=== PATIENT | female | born 1995 | race Caucasian/White ===

== ENCOUNTER 2016-08-06 10:24 | Emergency (ER) | payer MEDICAID ==
[2016-08-06 11:19] LABS: URINE APPEARANCE CLEAR; URINE BILIRUBIN NEGATIVE (NEGATIVE); URINE BLOOD MODERATE (NEGATIVE); URINE COLOR YELLOW; URINE GLUCOSE (UA) NEGATIVE (NEGATIVE); URINE KETONE NEGATIVE (NEGATIVE); URINE LEUKOCYTE ESTERASE NEGATIVE (NEGATIVE); URINE NITRITE NEGATIVE (NEGATIVE); URINE PROTEIN NEGATIVE (NEGATIVE); URINE UROBILINOGEN 0.2 E.U./dL (0.20 - 1.00)
[2016-08-06 11:19] LABS: BASO % 0.3 % (0-6); EOS % 0.9 % (0-6); GRAN % 60.6 % (47-80); HEMATOCRIT 38.2 % (35.0-47.0); HEMOGLOBIN 12.9 gm/dl (11.6-16.0); LYMPH % 32.1 % (16-45); MEAN CELL VOLUME 88.4 fl (81-97); MEAN CORPUSCULAR HEMOGLOBIN 29.9 pg (27-33); MEAN CORPUSCULAR HGB CONC 33.8 g/dl (32-36); MEAN PLATELET VOLUME 11.9 fl (7.4-10.4); MONO % 6.1 % (0-9); PLATELET COUNT 176 K/uL (130-400); RED BLOOD COUNT 4.32 M/uL (3.80-5.40); RED CELL DISTRIBUTION WIDTH 12.1 % (11.5-14.5); WHITE BLOOD COUNT W/O DIFF 6.4 K/uL (4.2-12.2)
[2016-08-06 11:40] LABS: URINE BACTERIA FEW; URINE WBC 0 - 2 (0-2/hpf)
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
--- NOTE | 2016-08-08 13:15 | ULTRASOUND REPORT ---
EXAM: ULTRASOUND FIRST TRIMESTER WITH TRANSVAGINAL IMAGING HISTORY: VAGINAL BLEEDING FOR ONE DAY. TWO PRIOR MISCARRIAGES. TECHNIQUE: Transabdominal ultrasound examination of the pelvis was performed. Transvaginal scanning was also performed for further evaluation of the uterus and adnexa. Comparison: Ultrasound first trimester with transvaginal imaging dated 07/31/16. FINDINGS: TRANSABDOMINAL PELVIC ULTRASOUND: The uterus is normal in position and smoothly marginated. It measures 7.5 x 2.8 x 5.4 cm while on the prior examination it measured 8.5 x 2.9 x 5.0 cm. No myometrial mass is seen. There is a small cystic structure within the fundal endometrium measuring 7 x 9 mm. It is better visualized transvaginally. The right ovary is visualized and normal in appearance measuring 2.6 x 1.0 x 2.1 cm. The left ovary is visualized and normal in appearance measuring 1.7 x 3.2 x 1.6 cm. No adnexal mass nor free pelvic fluid. TRANSVAGINAL PELVIC ULTRASOUND: No myometrial mass is seen. An intrauterine gestational sac is noted in the fundus. The gestational sac measures 7 x 7 x 7.5 mm with a mean sac diameter of 7.3 mm. A small pole and yolk sac are noted within the gestational sac. cardiac activity is identified with a heart rate of 101 b.p.m. There is a normal appearing decidual reaction. No implantation bleed is seen. The average crown rump length of 2.8 mm corresponds to a gestational age of 5 weeks 6 days. Each ovary is visualized and normal in size. The right ovary measures 1.9 x 1.4 x 1.2 cm and the left ovary measures 1.7 x 1.2 x 1.4 cm. Blood flow is noted in each ovary with color Doppler and Duplex Doppler evaluation. Spectral analysis demonstrates venous and arterial waveforms in each ovary. No adnexal mass nor free pelvic fluid. IMPRESSION: 1. SINGLE LIVE INTRAUTERINE IDENTIFIED WITH AGE ACCORDING TO CROWN RUMP LENGTH OF 5 WEEKS 6 DAYS. ON THE PRIOR EXAMINATION DATED 07/31/16, THE ESTIMATED GESTATIONAL AGE WAS 5 WEEKS 5 DAYS. NO EVIDENCE OF IMPLANTATION BLEED. 2. HEART RATE IS 101 B.P.M. 3. NORMAL OVARIES. JOB NUMBER: [id number] [facility]
== END 2016-08-06 15:34 | disposition home or self-care (01) ==
LOC: ER 10:24
DX: O20.0 Threatened abortion (principal); Z3A.01 Less than 8 weeks gestation of pregnancy
CPT/HCPCS: 76801; 76817; 81001; 84702; 85025; 99284

== ENCOUNTER 2016-08-20 20:34 | Emergency (ER) | payer MEDICAID ==
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
[2016-08-20 21:06] LABS: URINE APPEARANCE CLEAR; URINE BILIRUBIN NEGATIVE (NEGATIVE); URINE BLOOD LARGE (NEGATIVE); URINE COLOR YELLOW; URINE GLUCOSE (UA) NEGATIVE (NEGATIVE); URINE KETONE NEGATIVE (NEGATIVE); URINE LEUKOCYTE ESTERASE NEGATIVE (NEGATIVE); URINE NITRITE NEGATIVE (NEGATIVE); URINE UROBILINOGEN 0.2 E.U./dL (0.20 - 1.00)
[2016-08-20] MEDS: HYOSCYAMINE SULFATE ODT 0.125 MG TAB.SUBL SL ONE (21:14)
[2016-08-20] MEDS: ACETAMINOPHEN 325 MG TAB PO ONE (21:15)
[2016-08-20 21:16] LABS: URINE BACTERIA NONE SEEN; URINE EPITHELIAL CELLS 0 - 2 (FEW); URINE WBC 0 - 2 (0-2/hpf)
[2016-08-20 21:20] LABS: BASO % 0.6 % (0-6); EOS % 1.1 % (0-6); GRAN % 56.6 % (47-80); HEMATOCRIT 39.9 % (35.0-47.0); HEMOGLOBIN 13.4 gm/dl (11.6-16.0); LYMPH % 33.1 % (16-45); MEAN CELL VOLUME 87.9 fl (81-97); MEAN CORPUSCULAR HEMOGLOBIN 29.5 pg (27-33); MEAN CORPUSCULAR HGB CONC 33.6 g/dl (32-36); MONO % 8.6 % (0-9); PLATELET COUNT 213 K/uL (130-400); RED BLOOD COUNT 4.54 M/uL (3.80-5.40); WHITE BLOOD COUNT W/O DIFF 8.5 K/uL (4.2-12.2)
[2016-08-20 21:31] LABS: ALB/GLOB RATIO 1.8 (1.1-1.8); ALBUMIN 4.7 gm/dL (3.5-5.0); ALKALINE PHOSPHATASE 63 U/L (38-126); ALT/SGPT 36 U/L (9-52); ANION GAP 16.8 (7-16); AST/SGOT 22 U/L (14-36); BILIRUBIN,TOTAL 0.33 mg/dL (0.2-1.3); BLOOD UREA NITROGEN 12 mg/dL (7-17); CARBON DIOXIDE 23.2 mmol/L (22-30); CREATININE 0.6 mg/dL (0.52-1.04); EST GLOMERULAR FILTRATION RATE > 60 ml/min; GLUCOSE,RANDOM 87 mg/dL (70-110); TOTAL PROTEIN 7.3 gm/dL (6.3-8.2)
== END 2016-08-20 22:01 | disposition home or self-care (01) ==
LOC: ER 20:34
DX: O46.91 Antepartum hemorrhage, unspecified, first trimester (principal); R31.0 Gross hematuria; Z3A.01 Less than 8 weeks gestation of pregnancy
CPT/HCPCS: 99284 ×2; 85025; 84702; 80053; 81001; 76817; 76801; J1980

== ENCOUNTER 2016-08-21 22:00 | Emergency (ER) | payer MEDICAID ==
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
[2016-08-21 22:44] LABS: BASO % 0.4 % (0-6); EOS % 0.8 % (0-6); GRAN % 57.1 % (47-80); HEMATOCRIT 39.3 % (35.0-47.0); MEAN CELL VOLUME 88.9 fl (81-97); MEAN CORPUSCULAR HEMOGLOBIN 29.4 pg (27-33); MEAN CORPUSCULAR HGB CONC 33.1 g/dl (32-36); MEAN PLATELET VOLUME 11.7 fl (7.4-10.4); MONO % 7.7 % (0-9); PLATELET COUNT 224 K/uL (130-400); RED BLOOD COUNT 4.42 M/uL (3.80-5.40); RED CELL DISTRIBUTION WIDTH 12.1 % (11.5-14.5); WHITE BLOOD COUNT W/O DIFF 8.9 K/uL (4.2-12.2)
[2016-08-21] MEDS ORDERED: HYDROCODONE/APAP 5/325MG TABLET PO ONE ×2 (22:54→23:34)
== END 2016-08-21 23:40 | disposition home or self-care (01) ==
LOC: ER 22:00
DX: O20.0 Threatened abortion (principal); Z3A.01 Less than 8 weeks gestation of pregnancy
CPT/HCPCS: 84702; 85025; 99284

== ENCOUNTER 2016-08-22 10:17 | Emergency (ER) | payer MEDICAID ==
[2016-08-22 11:05] LABS: BASO % 0.5 % (0-6); EOS % 1.3 % (0-6); GRAN % 56.8 % (47-80); HEMATOCRIT 38.7 % (35.0-47.0); HEMOGLOBIN 12.8 gm/dl (11.6-16.0); LYMPH % 32.6 % (16-45); MEAN CORPUSCULAR HEMOGLOBIN 29.4 pg (27-33); MEAN CORPUSCULAR HGB CONC 33.1 g/dl (32-36); MEAN PLATELET VOLUME 11.7 fl (7.4-10.4); MONO % 8.8 % (0-9); PLATELET COUNT 188 K/uL (130-400); RED BLOOD COUNT 4.35 M/uL (3.80-5.40); WHITE BLOOD COUNT W/O DIFF 6.4 K/uL (4.2-12.2)
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
--- NOTE | 2016-08-27 10:45 | ULTRASOUND REPORT ---
EXAM: ULTRASOUND FIRST TRIMESTER WITH TRANSVAGINAL IMAGING HISTORY: POSSIBLE MISCARRIAGE ON 08/21/16. MILD CRAMPING AND MILD VAGINAL BLEEDING. TECHNIQUE: Transabdominal ultrasound examination of the pelvis was performed. Transvaginal scanning was also performed for further evaluation of the uterus and adnexa. Comparison: Ultrasound first trimester with transvaginal imaging dated 08/20/16. FINDINGS: TRANSABDOMINAL PELVIC ULTRASOUND: The uterus is normal in position and smoothly marginated. It measures 8.9 cm in length x 3.2 cm AP x 4.9 cm transverse. On the prior examination the uterus measured 9.1 x 3.7 x 5.1 cm. No myometrial mass is visualized. The previously demonstrated intrauterine gestational sac is no longer identified. The endometrium measures approximately 9 mm in thickness. The right ovary is visualized and normal in appearance measuring 1.6 x 3.0 x 1.6 cm. The left ovary is visualized measuring 1.0 x 3.1 x 1.1 cm. Blood flow is demonstrated in each ovary with color Doppler and Duplex Doppler evaluation. Spectral analysis demonstrates venous and arterial waveforms within the right ovary and venous waveform in the left ovary. No adnexal mass nor free pelvic fluid. TRANSVAGINAL PELVIC ULTRASOUND: No myometrial mass is demonstrated. The endometrium appears somewhat thickened and irregular measuring 1.7 cm in short axis diameter. No intrauterine gestational sac is seen. The right ovary is visualized measuring 1.5 x 2.3 x 1.5 cm. The left ovary is visualized and normal in appearance measuring 2.2 x 1.4 x 1.4 cm. Small follicles are noted in each ovary. Blood flow is demonstrated in each ovary with color Doppler and Duplex Doppler evaluation. Spectral analysis demonstrates venous and arterial waveforms in each ovary. No adnexal mass nor free pelvic fluid identified. IMPRESSION: 1. THE PREVIOUSLY DEMONSTRATED INTRAUTERINE GESTATIONAL SAC IS NO LONGER VISUALIZED. THE ENDOMETRIUM DOES APPEAR SOMEWHAT HETEROGENEOUS AND IS MILDLY THICKENED MEASURING 17 MM. THIS IS NONSPECIFIC. RETAINED PRODUCTS OF CONCEPTION WOULD BE DIFFICULT TO ENTIRELY EXCLUDE. 2. THE EXAMINATION IS OTHERWISE UNREMARKABLE. JOB NUMBER: [id number] MTDD
== END 2016-08-22 14:20 | disposition home or self-care (01) ==
LOC: ER 10:17
DX: O03.9 Complete or unspecified spontaneous abortion without complication (principal)
CPT/HCPCS: 76801; 76817; 84702; 85025; 86901; 99283

== ENCOUNTER 2016-09-02 21:46 | Emergency (ER) | payer MEDICAID ==
[2016-09-02] MEDS ORDERED: ONDANSETRON HCL IV 4 MG/2 ML VIAL IVP ONE (22:11)
[2016-09-02] MEDS ORDERED: 0.9 % SODIUM CHLORIDE 1000ML 1,000 ML IV ONE (22:11)
[2016-09-02] MEDS ORDERED: 0.9 % SODIUM CHLORIDE 1,000 ML BAG IV ONE ×2 (22:12→23:11)
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
[2016-09-02 22:23] LABS: BASO % 0.1 % (0-6); EOS % 0.8 % (0-6); HEMATOCRIT 42.5 % (35.0-47.0); HEMOGLOBIN 14.4 gm/dl (11.6-16.0); MEAN CORPUSCULAR HEMOGLOBIN 29.1 pg (27-33); MEAN CORPUSCULAR HGB CONC 33.9 g/dl (32-36); MEAN PLATELET VOLUME 11.9 fl (7.4-10.4); MONO % 6.3 % (0-9); PLATELET COUNT 233 K/uL (130-400); RED BLOOD COUNT 4.94 M/uL (3.80-5.40); RED CELL DISTRIBUTION WIDTH 12.1 % (11.5-14.5); WHITE BLOOD COUNT W/O DIFF 15.7 K/uL (4.2-12.2)
[2016-09-02 22:34] LABS: ALBUMIN 5.1 gm/dL (3.5-5.0); ALKALINE PHOSPHATASE 81 U/L (38-126); ALT/SGPT 36 U/L (9-52); ANION GAP 16.3 (7-16); AST/SGOT 27 U/L (14-36); BILIRUBIN,TOTAL 0.63 mg/dL (0.2-1.3); BLOOD UREA NITROGEN 10 mg/dL (7-17); CARBON DIOXIDE 22.7 mmol/L (22-30); CREATININE 0.7 mg/dL (0.52-1.04); EST GLOMERULAR FILTRATION RATE > 60 ml/min; GLUCOSE,RANDOM 87 mg/dL (70-110); LIPASE 41 U/L (23-300); TOTAL PROTEIN 8.4 gm/dL (6.3-8.2)
[2016-09-02 23:06] LABS: URINE APPEARANCE CLEAR; URINE BILIRUBIN SMALL (NEGATIVE); URINE BLOOD NEGATIVE (NEGATIVE); URINE COLOR YELLOW; URINE GLUCOSE (UA) NEGATIVE (NEGATIVE); URINE KETONE NEGATIVE (NEGATIVE); URINE LEUKOCYTE ESTERASE SMALL (NEGATIVE); URINE NITRITE NEGATIVE (NEGATIVE); URINE PROTEIN TRACE (NEGATIVE); URINE UROBILINOGEN 0.2 E.U./dL (0.20 - 1.00)
[2016-09-02 23:10] LABS: HCG,QUALITATIVE URINE NEGATIVE (NEGATIVE); URINE BACTERIA FEW; URINE MUCUS LIGHT; URINE RBC 0 - 2 (NONE SEEN)
[2016-09-02] MEDS ORDERED: ONDANSETRON 4 MG ODT TABLET SL ONE (23:43)
== END 2016-09-03 00:35 | disposition home or self-care (01) ==
LOC: ER 21:46
DX: R11.2 Nausea with vomiting, unspecified (principal); R19.7 Diarrhea, unspecified
CPT/HCPCS: 99284 ×2; 96374; 96361; 83690; 80076; 80048; 81001; 81025; 85027; J2405; J7030

== ENCOUNTER 2017-02-09 23:31 | Emergency (ER) | payer MEDICAID ==
[2017-02-09] MEDS ORDERED: ACETAMINOPHEN 325 MG TAB PO ONE (23:51)
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
== END 2017-02-10 00:16 | disposition home or self-care (01) ==
LOC: ER 23:31
DX: J40 Bronchitis, not specified as acute or chronic (principal); J02.9 Acute pharyngitis, unspecified; B34.9 Viral infection, unspecified; R51 Headache; Z87.891 Personal history of nicotine dependence
CPT/HCPCS: 87880; 99282

== ENCOUNTER 2017-12-13 15:06 | Emergency (ER) | payer BC ==
[2017-12-13] MEDS ORDERED: IBUPROFEN 600 MG TABLET PO ONE (15:27)
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
[2017-12-13 15:41] LABS: INFLUENZA A NEGATIVE (NEGATIVE); INFLUENZA B POSITIVE (NEGATIVE)
== END 2017-12-13 16:02 | disposition home or self-care (01) ==
LOC: ER 15:06
DX: J10.1 Influenza due to other identified influenza virus with other respiratory manifestations (principal); F17.210 Nicotine dependence, cigarettes, uncomplicated
CPT/HCPCS: 87400; 99282